=== PATIENT | female | born 2000 | race Caucasian/White ===

== ENCOUNTER → 2020-04-19 | Outpatient (CLI) | payer OTHER ==
[~2020-04-19] MED LIST: CLARITIN10 MG PO; FLONASE 0.05% N16 GM; HYDROCODON-ACE1 EAC4 PO; IBUPROFEN800 MG PO; IRON325 M1 PO; VITAMIN D31250 MCG PO
== END ==
LOC: KOH-I 09:02
DX: M54.2 Cervicalgia (principal)
CPT/HCPCS: 72040

== ENCOUNTER 2020-06-09 19:08 | Emergency (ER) | payer OTHER ==
[~2020-06-09 19:08] MED LIST changes: -HYDROCODON-ACE1 EAC4 PO; -IBUPROFEN800 MG PO
[2020-06-09] MEDS ORDERED: IBUPROFEN800 MG PO (22:03)
[2020-06-09] MEDS ORDERED: HYDROCODON-ACE1 EAC4 PO (22:03)
== END 2020-06-09 22:30 | disposition home or self-care (01) ==
LOC: ER1 19:08
DX: S82.52XA Displaced fracture of medial malleolus of left tibia, initial encounter for closed fracture (principal); W22.8XXA Striking against or struck by other objects, initial encounter
CPT/HCPCS: 73610; 73620; 99283

== ENCOUNTER → 2020-06-12 | Outpatient (CLI) | payer OTHER ==
[~2020-06-12] MED LIST changes: +HYDROCODON-ACE1 EAC4 PO; +IBUPROFEN800 MG PO
== END ==
LOC: KOH-I 06-11 12:30
DX: S82.845A Nondisplaced bimalleolar fracture of left lower leg, initial encounter for closed fracture (principal); X58.XXXA Exposure to other specified factors, initial encounter
CPT/HCPCS: 73700

== ENCOUNTER → 2020-07-12 | Outpatient (CLI) | payer OTHER | LOC: KOH-I 09:19 | DX: S82.892A Other fracture of left lower leg, initial encounter for closed fracture (principal); X58.XXXA Exposure to other specified factors, initial encounter | CPT/HCPCS: 73610 ==

== ENCOUNTER → 2020-08-02 | Outpatient (CLI) | payer OTHER | LOC: KOH-I 09:49 | DX: S82.892A Other fracture of left lower leg, initial encounter for closed fracture (principal) | CPT/HCPCS: 73610 ==

== ENCOUNTER → 2020-08-28 | Outpatient (CLI) | payer OTHER | LOC: KOH-I 13:42 | DX: S82.892A Other fracture of left lower leg, initial encounter for closed fracture (principal) | CPT/HCPCS: 73610 ==

== ENCOUNTER → 2020-09-18 | Outpatient (CLI) | payer OTHER | LOC: KOH-I 09-05 13:00 | DX: M25.572 Pain in left ankle and joints of left foot (principal); S86.392D Other injury of muscle(s) and tendon(s) of peroneal muscle group at lower leg level, left leg, subsequent encounter | CPT/HCPCS: 73721 ==

== ENCOUNTER → 2020-11-19 | Outpatient (CLI) | payer OTHER | LOC: KOH-I 08:51 | DX: S82.892A Other fracture of left lower leg, initial encounter for closed fracture (principal) | CPT/HCPCS: 73600 ==

== ENCOUNTER → 2021-01-21 | Outpatient (CLI) | payer OTHER | LOC: KOH-I 08:33 | DX: S82.892A Other fracture of left lower leg, initial encounter for closed fracture (principal) | CPT/HCPCS: 73610 ==